=== PATIENT | female | born 1965 | race Caucasian/White ===

== ENCOUNTER 2016-09-21 17:12 | Observation (INO) | payer OTHER ==
[~2016-09-21 17:12] MED LIST: BUTALBIT-ACETA1 EAC1 PO; ELAVIL100 MG PO; GLUCOPHAGE500 MG PO; SIMVASTATIN20 M1 PO; TRAVEL MOTION S25 MG PO; WELLBUTRIN SR150 MG; ZOFRAN ODT4 MG/UDTAB PO; ZOLOFT100 MG
[2016-09-21] MEDS ORDERED: PRINIVIL10 M1 PO (17:32)
[2016-09-21] MEDS ORDERED: LEVEMIR100 UNITS/ SC (17:32)
[2016-09-21] MEDS ORDERED: WELLBUTRIN XL150 M1 PO (17:33)
[2016-09-21] MEDS ORDERED: APIDRA100 UNIT/1 SC (17:33)
[2016-09-21] MEDS ORDERED: SERTRALINE HCL100 M5 PO (17:33)
[2016-09-21 17:46] LABS: BASO % 0.4 % (0-2); EOS % 2.3 % (0-7); EOSINOPHIL ABSOLUTE COUNT 0.1 tho/cmm (0.0-0.7); HCT-HEMATOCRIT 41.7 % (34.0-49.0); HGB-HEMOGLOBIN 14.9 gm/dl (12.0-15.5); IMMATURE GRANULOCYTES ABSOLUTE 0.01 tho/cmm (0-0.03); IMMATURE GRANULOCYTES PERCENT 0.2 % (0-0.3); LYMPH % 43.6 % (20-45); LYMPH ABSOLUTE COUNT 2.4 tho/cmm (0.8-4.5); MCH (MEAN CORPUSCULAR HGB) 30.4 pg (28.0-32.0); MCHC MEAN CORPUSCULAR HGB CONC 35.7 % (32.0-36.0); MCV (MEAN CELL VOLUME) 85.1 fl (82.0-96.0); MEAN PLATELET VOLUME 9.9 cmc (9.4-12.4); MONOCYTE ABSOLUTE COUNT 0.4 tho/cmm (0.0-1.2); NEUTROPHIL ABSOLUTE COUNT 2.6 tho/cmm (1.6-8.0); NEUTROPHIL-AUTOMATED 2.6 tho/cmm (1.6-8.0); NEUTROPHILS % 46.5 % (40-80); PLATELET COUNT 244 tho/cmm (150-450); RED CELL DISTRIBUTION WIDTH 12.3 % (12.4-16.4); WHITE BLOOD COUNT 5.6 tho/cmm (4.0-10.0)
[2016-09-21 17:51] LABS: KETONE-BETA (WHOLE BLOOD) 0.3 mmol/L (0.0-0.6)
[2016-09-21 18:06] LABS: URINE BILIRUBIN NEGATIVE (NEG); URINE BLOOD NEGATIVE (NEG); URINE GLUCOSE (UA) LARGE (NEG); URINE KETONE MODERATE (NEG); URINE LEUKOCYTE ESTERASE NEGATIVE (NEG); URINE NITRITE NEGATIVE (NEG); URINE PROTEIN NEGATIVE (NEG)
[2016-09-21 18:12] LABS: ALBUMIN 3.4 g/dl (3.5-5.0); ALKALINE PHOSPHATASE 186 U/L (33-138); ALT/SGPT 31 U/L (12-78); ANION GAP 17 mmol/L (0-20); AST/SGOT 19 U/L (10-40); BILIRUBIN,TOTAL 0.4 mg/dl (0-1.5); BLOOD UREA NITROGEN 13 mg/dl (6-24); CALCIUM 8.5 mg/dl (8.5-10.5); CARBON DIOXIDE-VENOUS 21 mmol/L (22-32); CHLORIDE 103 mmol/l (96-110); LIPASE 169 U/L (73-393); PHOSPHOROUS 3.2 mg/dl (2.5-4.9); POTASSIUM 4.8 mmol/L (3.7-5.1); SODIUM 136 mmol/L (135-145); eGFR VALUE FOR BLACK >90 mL/Min
[2016-09-21 18:14] LABS: GLUCOSE 566 mg/dL (70-110)
[2016-09-21 18:15] LABS: URINE APPEARANCE CLEAR; URINE COLOR YELLOW
[2016-09-21 18:17] LABS: TSH-THYROID STIMULATING HORM. 2.68 uIU/ml (0.40-3.80)
[2016-09-21 18:54] LABS: OSMOLALITY 310 mOsm/kg (275-295)
[2016-09-22 04:37] LABS: MAGNESIUM 2.2 mg/dl (1.8-2.6); PHOSPHOROUS 3.1 mg/dl (2.5-4.9)
[2016-09-22] MEDS ORDERED: APIDRA100 UNIT/1 SC (13:52)
[2016-09-22] MEDS ORDERED: GLUCAGON HCL1 MG SC (13:54)
== END 2016-09-22 14:15 ==
LOC: EDMED 17:12 → PCUA 21:11
PROVIDERS: Emergency Medicine; ADMIT Internal Medicine
DX: E11.00 Type 2 diabetes mellitus with hyperosmolarity without nonketotic hyperglycemic-hyperosmolar coma (NKHHC) (principal); E11.65 Type 2 diabetes mellitus with hyperglycemia; R51 Headache; I10 Essential (primary) hypertension; F41.8 Other specified anxiety disorders; E78.5 Hyperlipidemia, unspecified; R11.2 Nausea with vomiting, unspecified; Z79.4 Long term (current) use of insulin; Z79.899 Other long term (current) drug therapy; Z88.0 Allergy status to penicillin; Z88.5 Allergy status to narcotic agent; Z83.3 Family history of diabetes mellitus; Z87.891 Personal history of nicotine dependence; Z90.49 Acquired absence of other specified parts of digestive tract; Z90.710 Acquired absence of both cervix and uterus; Z98.890 Other specified postprocedural states
CPT/HCPCS: G0009; G0378; J1650; J1815; J2405; J3475; J3480; J7030